=== PATIENT | female | born 1980 | race Caucasian/White ===

== ENCOUNTER → 2016-04-02 | Outpatient (CLI) | payer BC ==
--- NOTE | 2016-04-02 10:22 | US ---
April 02, [address] Duong Vargas, Thank you for requesting consultation and a follow up ultrasound for your patient, Mrs. Botello son. As you know, Kimberly is a 35 year old G 5, P 0132 . Her due date is by LMP and 11 wee k ultrasound. Her current gestational age based on this dating is is 32 weeks 4 days. She is seen t kev for a follow up assessment of growth secondary to size greater than dates. She had an abnormal Glucola but a normal 3 hour GTT. She has a history of of twins at 36 weeks. Her son abraham ad a cardiac anomaly. She had a reassuring echocardiogram in this . Her NIPT was luis miguel ssuring. ULTRASOUND Number of fetuses: 1 Placental location: Anterior presentation: Transverse Heart Rate: 138 bpm Cervix: 4.5 cm viewed transabdominally Amniotic fluid index: 19.4 cm Measurements: Biparietal diameter: 85 mm 34 weeks, 2 days Head circumference: 326 mm 37 weeks, 0 days Abdominal circumference: 313 mm 35 weeks, 2 days Femur length: 63 mm 32 weeks, 6 days Humerus length: 57 mm 33 weeks, 0 days Transcerebellar diameter: 43 mm 33 weeks, 6 days Average age by ultrasound: 34 weeks, 6 days Estimated weight: 2483 gm weight percentile: 94 % ANATOMY anatomy was previously assessed. Today the following structures were visualized and appeared n ormal: Cavum septum pellucidum, four-chamber view of the heart, stomach, bilateral kidneys, and blad guilherme. IMPRESSION: 1. Intrauterine at 32 weeks, 4 days; ALEXIS of 05/24/16. 2. growth is increased to the 94th%ile consistent with macrosomia. 3. anatomy was previously assessed and today's ultrasound continues to provide reassurance of normal appearing anatomy. 4. Normal amniotic fluid volume 5. History of of twins at 36 weeks. RECOMMENDATIONS: I had the opportunity to review today's ultrasound with your patient. I agree with your clinical asse ssment. The baby is large for gestational age consistent with macrosomia at the 94th percentile. Ther e is proportional growth. The amniotic fluid is generous but normal for this gestational age. We perf ormed a review of the anatomy which is reassuring in that no overt abnormalities were detected. We discussed macrosomia today. She is aware that on this growth trajectory, the baby will be o carlyn 9 lb at term. At your discretion, we are happy to provide an additional assessment of growth in 4 weeks to better attempt a guesstimate of weight. For women who do not have diabetes in pregn james, estimated weight up to 5000 grams can be considered for a vaginal attempt. When at 5000 grams or bigger, a section can be consider and discussed. She is aware that delivery <39 we eks for macrosomia is not indicated as it did not improve the odds for a successful vaginal att empt. Thank you for allowing us the opportunity to evaluate your patient. Should you have any further ques tions or concerns please do not hesitate to contact me. Approximately 15 minutes were spent with the patient and 10 minutes were spent in face to face consu ltation. Mariya Jernigan MD [employer] Maternal Medicine Diagnosis Department of Obstetrics & Gynecology [facility]
--- NOTE | 2016-04-02 16:50 | US ---
Follow-up Obstetric Ultrasound Indication: 35-year-old 5 para 0-1-3-2 woman following up in the Perinatology Clinic due to s ize greater than dates. The estimated gestational age by previous dating is 32 weeks and 4 days yield ing an EDC of May 24, 2016 Comparison: February 14, 2016 Findings: Number: 1 Presentation: Transverse, head maternal right Placental location: Anterior. No previa. Cervix: 4.5 cm (visualized transabdominally) Maximum vertical pocket: 7.7 cm Amniotic fluid index: 19.4 cm heart rate: 138 bpm Ovaries: Not visualized. Biometry: Biparietal diameter: 85 mm 34 weeks, 2 days Head circumference: 326 mm 37 weeks, 0 days Abdominal circumference: 313 mm 35 weeks, 2 days Femur length: 63 mm 32 weeks, 6 days Humerus length: 57 mm 33 weeks, 0 days Transcerebellar diameter: 43 mm 33 weeks, 6 days HC/AC: 1.04 (0.96 - 1.17) FL/BPD: 75% FL/AC: 20% Average ultrasound age: 34 weeks, 6 days EDC based on today's average ultrasound age: May 08, 2016 Estimated weight is 2483 grams +/- 363 grams (5 lbs. 8 oz. +/- 13 ounces). The estimated weight is at the 94th percentile based on previous dating (previously 57th percentile). Anatomy Survey: Previously assessed. The supratentorial brain, posterior fossa, cavum septum pe llucidum, four-chamber heart, stomach, kidneys, and urinary bladder are normal. Impression: 1. Living trinh in transverse presentation. Macrosomia with the fetus now in the 94th p ercentile (previously 57th percentile). The estimated gestational age by biometry is 34 weeks a nd 6 days yielding an EDC of May 08, 2016. The estimated gestational age by previous dating is 32 we eks and 4 days. 2. Upper normal amniotic fluid volume (JAVON is 19.4). 3. Limited reassuring anatomic survey. 4. Please refer to Dr. Mariya Jernigan's perinatology consultation and recommendations for follow up.
== END ==
LOC: FIMAGING 09:30
PROVIDERS: ATTEND Obstetrics & Gynecology
DX: O36.63X1 Maternal care for excessive fetal growth, third trimester, fetus 1 (principal); O09.523 Supervision of elderly multigravida, third trimester; Z3A.32 32 weeks gestation of pregnancy

== ENCOUNTER → 2016-04-26 | Outpatient (CLI) | payer BC | LOC: FIMAGING 13:14 | PROVIDERS: ATTEND Obstetrics & Gynecology | DX: O36.60X1 Maternal care for excessive fetal growth, unspecified trimester, fetus 1 (principal); O14.13 Severe pre-eclampsia, third trimester; Z3A.36 36 weeks gestation of pregnancy; Z87.51 Personal history of pre-term labor ==

== ENCOUNTER 2016-05-04 06:11 | Inpatient (IN) | payer BC ==
[2016-05-04] MEDS ORDERED: OXYTOCIN/RINGERS LACTATE 1,000 ML IV PRN (07:14)
[2016-05-04] MEDS ORDERED: LR 500 ML IV PRN (07:14)
[2016-05-04] MEDS ORDERED: AMPICILLIN SODIUM 2 GM in NS 100 ML IV ONE (07:14)
[2016-05-04] MEDS ORDERED: TERBUTALINE SULFATE 1 MG/ML VIAL IV PRN (07:14)
[2016-05-04] MEDS ORDERED: LIDOCAINE 1% 2 ML INJ ONE (07:42)
[2016-05-04] MEDS ORDERED: LIDOCAINE 1% 30 ML SDV ONE (07:50)
[2016-05-04] MEDS ORDERED: AMMONIA AROMATIC 1 EACH AMP IH ONE (07:51)
[2016-05-04] MEDS ORDERED: MISOPROSTOL 200 MCG TAB ONE (07:52)
[2016-05-04] MEDS ORDERED: OXYTOCIN 10 UNIT/ML VIAL ONE (07:52)
[2016-05-04] MEDS ORDERED: OXYTOCIN/LR *STANDARD DOSE PROTOCOL IV SCH (08:00)
[2016-05-04] MEDS: LR 1,000 ML IV PRN ×3 (08:20→16:48)
[2016-05-04 09:29] LABS: % IMMATURE GRANULYOCYTES 1.1 % (0.0-1.1); ABSOLUTE IMMATURE GRANULOCYTES 0.09 10^3/uL (0.00-0.10); ADD DIFF? NO; ADD MORPH? NO; ADD SCAN? NO; ATYPICAL LYMPHOCYTE FLAG 0 (0-99); FRAGMENT RBC FLAG 0 (0-99); HEMATOCRIT 33.1 % (38.0-47.0); LEFT SHIFT FLG 0 (0-99); LIPEMIA HEMOLYSIS FLAG 80 (0-99); MEAN CELL HEMOGLOBIN 27.5 pg (27.9-34.1); MEAN CELL HEMOGLOBIN CONCENTR. 33.2 g/dL (32.4-36.7); MEAN CELL VOLUME 82.8 fL (81.5-99.8); MEAN PLATELET VOLUME 10.4 fL (8.7-11.7); PLATELET CLUMPS FLAG 0 (0-99); PLATELET COUNT 262 10^3/uL (150-400)
[2016-05-04 09:48] LABS: ALANINE AMINOTRANSFERASE 24 IU/L (9-52); ASPARTATE AMINOTRANSFERASE 17 IU/L (14-46); BILIRUBIN,TOTAL 0.4 mg/dL (0.1-1.4); BILIRUBIN-CONJUGATED 0.3 mg/dL (0.0-0.5); BILIRUBIN-UNCONJUGATED 0.1 mg/dL (0.0-1.1); CREATININE 0.5 mg/dL (0.6-1.0); GLOMERULAR FILTRATION RATE > 60; LACTATE DEHYDROGENASE 363 IU/L (313-618)
[2016-05-04] MEDS ORDERED: fentaNYL 2MCG/ML/BUP 0.1% RTU 100 ML BAG EP ONE (11:30)
[2016-05-04] MEDS ORDERED: BUPIVACAINE 0.25% 30 ML SDV ONE (11:30)
[2016-05-04] MEDS ORDERED: PHENYLEPHRINE HCL 100 MCG/ML SYR ONE (11:30)
[2016-05-04] MEDS ORDERED: fentaNYL 100 MCG/2 ML INJ ONE (11:30)
[2016-05-04] MEDS ORDERED: ONDANSETRON 4 MG/2 ML VIAL IVP PRN (12:56)
[2016-05-04] MEDS ORDERED: PHENYLEPHRINE HCL 100 MCG/ML SYR IVP PRN (12:56)
--- NOTE | 2016-05-04 12:59 | OBPROG ---
OBG Progress Note Assessment/Plan: Assessment: 35 yo [id number] @ 37 2/7, IOL for mild pre-eclampsia Plan: 05/04/16 12:53 FWB reassuring. Gbs-s/p abx. Comfortable with epidural. IUPC placed, titrate pitocin as desired. Subjective: 35 yo [id number] @ 37 2/7, IOL for mild tyd-[id number]-esoyorydysv with epidural. Objective: 05/04/16 08:20 05/04/16 08:20 Patient ABO/Rh A POSITIVE 05/04/16 08:20 Uric Acid 3.0 mg/dL (2.5-6.8) 05/04/16 08:20 Total Bilirubin 0.4 mg/dL (0.1-1.4) 05/04/16 08:20 Conjugated Bilirubin 0.3 mg/dL (0.0-0.5) 05/04/16 08:20 Unconjugated Bilirubin 0.1 mg/dL (0.0-1.1) 05/04/16 08:20 AST 17 IU/L (14-46) 05/04/16 08:20 ALT 24 IU/L (9-52) 05/04/16 08:20 Lactate Dehydrogenase 363 IU/L (313-618) 05/04/16 08:20 129/89 110 36.4 - SVE Dilation (cm): 4 Effacement (%): 50 Station: -3 Current Contraction Pattern: Regular FHR (bpm): 150 FHR Pattern Variability: Moderate FHR Category: 2 Membranes: AROM Amniotic Fluid Color: Clear ICD10 Worksheet Patient Problems: Problems Problem Status Onset Mild pre-eclampsia in third trimester Acute
[2016-05-04] MEDS ORDERED: fentaNYL 2MCG/ML/BUP 0.1% RTU 100 ML EP SCH (13:00)
[2016-05-04] MEDS ORDERED: LR 500 ML IV SCH (13:00)
[2016-05-04] MEDS: AMPICILLIN SODIUM 1 GM in NS 100 ML IV SCH ×2 (13:06→16:38)
--- NOTE | 2016-05-04 13:31 | PREANESOB ---
Obstetric Pre-Anesthesia Info - General Info Proposed Procedure: Labor and delivery with pitocin. : 5 Para: 1 WBD: 37 - Info Status: Full Term Monitors: External FHR Baseline (bpm): 130 FHR Pattern: Reassuring - Labor Status Cervical Dilation per last OB SVE: 4 Station per last OB SVE: -3 Amniotic Fluid Color: Clear Pitocin: In Use PIH: Mild Magnesium Sulfate in Use: No Labor Epidural: Proposed Anesthesia ROS: Prior epidural for delivery of twins. Mild preeclampsia. Takes synthroid. Allergies/Adverse Reactions: Allergy/AdvReac Type Severity Reaction Status Date / Time No Known Allergies Allergy Unverified 11/14/12 13:03 Home Medications: Medication Instructions Recorded Dha 1 tab PO DAILY AT 4PM 05/04/16 Synthroid 75 mcg (*) 75 mcg PO DAILY06 05/04/16 Visit Medications: Generic Name Dose Route Start Last Admin Trade Name Freq PRN Reason Stop Dose Admin Diphenhydramine HCl 25 - 50 mg 05/04/16 12:56 05/04/16 13:10 Benadryl Injection IVP 10/31/16 12:55 50 mg Q6HRS PRN Administration Itching Ampicillin Sodium 1 gm/ Sodium 100 mls @ 200 mls/hr 05/04/16 11:16 05/04/16 13:06 Chloride IV 06/03/16 11:15 100 mls Q4H HALINA Administration Protocol Lactated Ringer's 1,000 mls @ 0 mls/hr 05/04/16 07:14 05/04/16 08:20 Lr IV 10/31/16 07:13 1,000 mls PRN PRN Administration SEE PROTOCOL CONDITIONS Protocol Per Protocol Lactated Ringer's 500 mls @ 500 mls/hr 05/04/16 07:14 Lr IV PRN PRN Maternal Hypotension Oxytocin/Lactated Ringer's 1,000 mls @ 150 mls/hr 05/04/16 07:14 Pitocin 20 Units/Lr (Premix) IV PRN PRN Post- bleeding Oxytocin/Lactated Ringer's 500 mls @ 0 mls/hr 05/04/16 08:00 05/04/16 08:20 Pitocin 30 Units/Lr (Premix) IV 10/31/16 07:59 500 mls CONT HALINA Administration Protocol Per Protocol Fentanyl/Bupivacaine HCl 100 mls @ 0 mls/hr 05/04/16 13:00 Fentanyl/Bupivacaine/Ns 2 Mcg/Ml 0.1% (Premix EP 05/14/16 12:59 CONT HALINA Protocol As Directed Lactated Ringer's 500 mls @ 0 mls/hr 05/04/16 13:00 Lr IV 10/31/16 12:59 CONT HALINA As Directed Ibuprofen 600 mg 05/04/16 07:14 Motrin PO 10/31/16 07:13 Q6HRS PRN post , inflammation Ondansetron HCl 4 mg 05/04/16 12:56 Zofran IVP 10/31/16 12:55 Q4HRS PRN Nausea/Vomiting, Can't Take PO Phenylephrine HCl 100 mcg 05/04/16 12:56 Eugene-Synephrine IVP 10/31/16 12:55 .Q2M PRN Hypotension Terbutaline Sulfate 0.25 mg 05/04/16 07:14 Brethine IV 10/31/16 07:13 ONCE PRN Tachysystole Discontinued Medications Generic Name Dose Route Start Last Admin Trade Name Freq PRN Reason Stop Dose Admin Ammonia (Aromatic Spirit) Confirm 05/04/16 07:51 Ammonia Aromatic Administered 05/04/16 07:52 Dose 1 each IH .STK-MED ONE Bupivacaine HCl Confirm 05/04/16 11:30 Sensorcaine 0.25% Sdv Administered 05/04/16 11:31 Dose 30 ml .ROUTE .STK-MED ONE Ephedrine Sulfate Confirm 05/04/16 07:51 Ephedrine Sulfate Administered 05/04/16 07:52 Dose 50 mg .ROUTE .STK-MED ONE Fentanyl Confirm 05/04/16 11:30 Sublimaze Administered 05/04/16 11:31 Dose 100 mcg .ROUTE .STK-MED ONE Fentanyl/Bupivacaine HCl Confirm 05/04/16 11:30 Fentanyl/Bupivacaine/Ns 2 Mcg/Ml 0.1% (Premix Administered 05/04/16 11:31 Dose 100 ml EP .STK-MED ONE Ampicillin Sodium 2 gm/ Sodium 110 mls @ 220 mls/hr 05/04/16 07:14 05/04/16 08:19 Chloride IV 05/04/16 07:43 110 mls ONCE ONE Administration Protocol Lidocaine HCl Confirm 05/04/16 07:42 Lidocaine Hcl 1% Administered 05/04/16 07:43 Dose 2 ml .ROUTE .STK-MED ONE Lidocaine HCl Confirm 05/04/16 07:50 Lidocaine Hcl 1% Administered 05/04/16 07:51 Dose 30 ml .ROUTE .STK-MED ONE Misoprostol Confirm 05/04/16 07:52 Cytotec Administered 05/04/16 07:53 Dose 800 mcg .ROUTE .STK-MED ONE Oxytocin Confirm 05/04/16 07:52 Pitocin Administered 05/04/16 07:53 Dose 40 unit .ROUTE .STK-MED ONE Phenylephrine HCl Confirm 05/04/16 11:30 Eugene-Synephrine Administered 05/04/16 11:31 Dose 1,000 mcg .ROUTE .STK-MED ONE - Anesthesia History Response to Local Anesthetics: Normal Anesthesia & Operative History: No Prior Problems - Social History Substance Use/Abuse: Denies - Focused Exam Blood Pressure: 128/83 Heart Rate: 81 Height/Weight (Nursing): Height 165.1 cm Weight 80.739 kg Physical Exam: Within normal limits. ASA Status: II Labs: 05/04/16 08:20 05/04/16 08:20 Patient ABO/Rh A POSITIVE 05/04/16 08:20 Uric Acid 3.0 mg/dL (2.5-6.8) 05/04/16 08:20 Total Bilirubin 0.4 mg/dL (0.1-1.4) 05/04/16 08:20 Conjugated Bilirubin 0.3 mg/dL (0.0-0.5) 05/04/16 08:20 Unconjugated Bilirubin 0.1 mg/dL (0.0-1.1) 05/04/16 08:20 AST 17 IU/L (14-46) 05/04/16 08:20 ALT 24 IU/L (9-52) 05/04/16 08:20 Lactate Dehydrogenase 363 IU/L (313-618) 05/04/16 08:20 - Plan Anesthetic Plan: CSE Consent Signed and on Chart: Yes Patient/Guardian Understands and Agrees to Plan: Yes
--- NOTE | 2016-05-04 13:34 | POSTANESTH ---
Post Anesthetic Evaluation Cardiovascular Status: Normal, Stable Respiratory Status: Normal, Stable, Similar to Pre-op Cond. Level of Consciousness/Mental Status: Can Participate in Eval, Alert and Oriented Pain Control: Adequate, Prn Tx Ordered Nausea/Vomiting Control: Adequate, Prn Tx Ordered Complications Possibly Related to Anesthesia: None Noted (Tolerated CSE well, stable after phenylephrine x 2, comfortable.)
[2016-05-04] MEDS ORDERED: HYDROCORTISONE 0.5% CREAM TP PRN (20:01)
[2016-05-04] MEDS ORDERED: SIMETHICONE 80 MG TAB CHEW PO PRN (20:01)
--- NOTE | 2016-05-04 20:04 | OBPROC ---
- Labor and Delivery Onset of Contractions Date: 05/04/16 Onset of Contractions Time: 08:00 Onset of Contractions Type: Induced Rupture of Membranes Date: 05/04/16 Rupture of Membranes Time: 12:30 Rupture of Membranes Type: Artificial Amniotic Fluid Color: Clear Dilation Complete Time: 19:00 Delivery Type: Spontaneous Placenta Delivery Date: 05/04/16 Episiotomy/Laceration: 2nd Degree Repair: 3-0, Vicryl EBL: 200 ml Complications: None - Medications Labor Augmentation/Induction Meds Used: Pitocin Labor Augmentation/Induction Indication: Other (Specify) (mild pre-eclampsia) Anesthesia: Epidural - Info Infant A Delivery Date: 05/04/16 Delivery Time: 19:46 Sex of : Female Score (1 Min): 8 Score (5 Min): 9
[2016-05-04] MEDS: IBUPROFEN 600 MG TAB PO PRN (20:09)
[2016-05-05] MEDS: AMPICILLIN SODIUM 1 GM in NS 100 ML IV SCH (00:29)
[2016-05-05] MEDS: IBUPROFEN 600 MG TAB PO PRN ×4 (04:21→23:44)
--- NOTE | 2016-05-05 05:24 | SOAPPROG ---
SOAP Progress Note Assessment/Plan: Assessment: 35 yo s/p , ppd 1, with mild pre-eclampsia, doing well. Plan: Routine care. Rh +, rubella immune. Blood pressures stable. Home tomorrow. 05/05/16 05:22 Subjective: 35 yo s/p , ppd 1, with mild pre-eclampsia, doing well. Pain well controlled, decreased lochia, well. Objective: Vital Signs Temp Pulse Resp BP Pulse Ox 36.6 C 98 20 117/71 96 05/04/16 23:30 05/04/16 23:30 05/04/16 23:30 05/04/16 23:30 05/04/16 23:30 Laboratory Results 05/04/16 08:20 05/04/16 08:20 05/03/16 05/04/16 05/05/16 05:59 05:59 05:59 Intake Total 4200 Output Total 200 Balance 4000 Physical Exam - Physical Exam General Appearance: no apparent distress Respiratory: lungs clear Cardiac/Chest: regular rate, rhythm Abdomen: non-tender Skin: warm/dry Extremities: non-tender Neuro/Psych: oriented x 3 ICD10 Worksheet Patient Problems: Problems Problem Status Onset Mild pre-eclampsia in third trimester Acute
[2016-05-05] MEDS: HYDROCODONE/APAP 5/325 TAB PO PRN ×3 (06:27→21:29)
[2016-05-05] MEDS: LEVOTHYROXINE 75 MCG TAB PO SCH (06:27)
[2016-05-05] MEDS: DOCUSATE SODIUM 100 MG CAP PO PRN (14:02)
[2016-05-06] MEDS: HYDROCODONE/APAP 5/325 TAB PO PRN ×3 (01:25→18:26)
[2016-05-06] MEDS: LEVOTHYROXINE 75 MCG TAB PO SCH (05:47)
[2016-05-06] MEDS: IBUPROFEN 600 MG TAB PO PRN ×3 (05:47→18:01)
[2016-05-06 09:15] VITALS: BP 137/81; PULSE 79; RESP 16; TEMP 97.5; O2SAT 94
--- NOTE | 2016-05-06 10:04 | SOAPPROG ---
SOAP Progress Note Assessment/Plan: Assessment: 35 yo s/p , ppd 2, with mild pre-eclampsia, doing well. Plan: Routine care. Rh +, rubella immune. Blood pressures stable. Home today. 05/06/16 10:04 Subjective: 35 yo s/p , ppd 2, with mild pre-eclampsia, doing well. Objective: Vital Signs Temp Pulse Resp BP Pulse Ox 36.4 C 79 16 137/81 H 94 05/06/16 09:14 05/06/16 09:14 05/06/16 09:14 05/06/16 09:14 05/06/16 09:14 Laboratory Results 05/04/16 08:20 05/04/16 08:20 05/05/16 05/06/16 05/07/16 05:59 05:59 05:59 Intake Total 4200 Output Total 200 Balance 4000 Physical Exam - Physical Exam General Appearance: no apparent distress Respiratory: lungs clear Cardiac/Chest: regular rate, rhythm Abdomen: non-tender Skin: warm/dry Extremities: non-tender Neuro/Psych: oriented x 3 ICD10 Worksheet Patient Problems: Problems Problem Status Onset Mild pre-eclampsia in third trimester Acute
[2016-05-06] MEDS: DOCUSATE SODIUM 100 MG CAP PO PRN (18:26)
== END 2016-05-06 18:30 | disposition home or self-care (01) | DRG 775 ==
LOC: FLD 06:11 → FOB 23:10
PROVIDERS: ADMIT Obstetrics & Gynecology; ATTEND Obstetrics & Gynecology
PROC: 3E033VJ Introduction of Other Hormone into Peripheral Vein, Percutaneous Approach (ICD-10-PCS; principal; 2016-05-04)
PROC: 10907ZC Drainage of Amniotic Fluid, Therapeutic from Products of Conception, Via Natural or Artificial Opening (ICD-10-PCS; principal; 2016-05-04)
PROC: 0KQM0ZZ Repair Perineum Muscle, Open Approach (ICD-10-PCS; principal; 2016-05-04)
PROC: 10E0XZZ Delivery of Products of Conception, External Approach (ICD-10-PCS; principal; 2016-05-04)
DX: O14.04 Mild to moderate pre-eclampsia, complicating childbirth (principal); Z37.0 Single live birth; Z3A.37 37 weeks gestation of pregnancy; O99.284 Endocrine, nutritional and metabolic diseases complicating childbirth; E03.9 Hypothyroidism, unspecified; O99.824 Streptococcus B carrier state complicating childbirth; O70.1 Second degree perineal laceration during delivery
CPT/HCPCS: J0290; J1200; J2370; J2590; J3010; J3105

== ENCOUNTER 2016-05-11 15:18 | Inpatient (IN) | payer BC ==
[2016-05-11] MEDS ORDERED: HYDROCORTISONE 0.5% CREAM TP PRN (15:40)
[2016-05-11] MEDS ORDERED: DOCUSATE SODIUM 100 MG CAP PO PRN (15:40)
[2016-05-11] MEDS ORDERED: ACETAMINOPHEN 325 MG TAB PO PRN (15:40)
[2016-05-11] MEDS ORDERED: SIMETHICONE 80 MG TAB CHEW PO PRN (15:40)
[2016-05-11] MEDS ORDERED: GENTAMICIN PHARMACY TO DOSE MISC SCH (16:00)
[2016-05-11] MEDS ORDERED: NS 1,000 ML IV ONE (18:01)
--- NOTE | 2016-05-11 18:07 | PDGENHP ---
History and Physical - History of Present Illness Pt is a seen in the office today and found to have endometritis after vaginal delivery 1 week ago. Delivery was complicated by 2nd deg laceration and preeclampsia without severe features. Pt started having fevers and heavier bleeding overnight, seen in office and started on augmentin, but was feeling worse so decision made to admit for IV abx. History Information - Allergies/Home Medication List Allergies/Adverse Reactions: No Known Allergies Allergy (Unverified 11/14/12 13:03) Home Medications: Dha 1 tab PO DAILY AT 4PM 05/04/16 [Last Taken 05/03/16] Synthroid 75 mcg (*) 75 mcg PO DAILY06 05/04/16 [Last Taken 05/04/16 05:30] I have personally reviewed and updated: family history, medical history, social history, surgical history - Past Medical History no pertinent PMH - Surgical History Reports: no pertinent surgical hx - Family History Positive for: non-pertinent - Social History Smoking Status: Never smoked Alcohol Use: None Drug Use: None Additional social history: . twin 4 year olds at home Review of Systems Constitutional: Reports: chills, fever EENMT: Reports: no symptoms Cardiac: Reports: no symptoms Respiratory: Reports: no symptoms Gastrointestinal: Reports: abdominal pain, abdominal distention Genitourinary: Reports: no symptoms Muscolosketal: Reports: muscle pain Skin: Reports: no symptoms Neurological: Reports: no symptoms Hematologic/Lymphatic: Reports: no symptoms Immunologic/Allergy: Reports: no symptoms Physical Exam Pending In office HR 100, temp 102.5 Constitutional: uncomfortable Ears, Nose, Mouth, Throat: moist mucous membranes Cardiovascular: regular rate and rhythym Respiratory: no respiratory distress Gastrointestinal: tenderness (uterus TTP) Skin: warm Musculoskeletal: full muscle strength Neurologic: AAOx3 Psychiatric: interacting appropriately Lymph, Heme, Immunologic: no cervical LAD Assessment & Plan Assessment: PPD#7 endometritis Hemodynamically stable, lactic acid normal this AM, no e/o sepsis Plan: Admit to Repeat CBC Blood cultures x 2 IV abx (gent/clinda) IV fluid bolus Tyenol/ibuprofen Methergine 0.2 mg po q6h x 48 hours Monitor bleeding closely. No obvious retained products on exam in office today, if ongoing bleeding will get formal US and consider D&C
[2016-05-11] MEDS: D5W IV SCH (18:50)
[2016-05-11] MEDS: GENTAMICIN SULFATE IV SCH (18:50)
[2016-05-11 18:53] LABS: HEMATOCRIT 32.5 % (38.0-47.0); HEMOGLOBIN 10.8 g/dL (12.6-16.3); MEAN CELL HEMOGLOBIN 27.8 pg (27.9-34.1); MEAN CELL HEMOGLOBIN CONCENTR. 33.2 g/dL (32.4-36.7); MEAN CELL VOLUME 83.8 fL (81.5-99.8); RED BLOOD CELL COUNT 3.88 10^6/uL (4.18-5.33); RED CELL DISTRIBUTION WIDTH 14.5 % (11.5-15.2)
[2016-05-11] MEDS: IBUPROFEN 600 MG TAB PO PRN (19:18)
[2016-05-11] MEDS: METHYLERGONOVINE MAL 0.2 MG TAB PO SCH ×2 (19:49→23:57)
[2016-05-11 19:50] VITALS: O2SAT 96
[2016-05-11] MEDS: CLINDAMYCIN 900 MG/DEXTROSE 50 ML IV SCH (19:50)
[2016-05-11] MEDS: HYDROCODONE/APAP 5/325 TAB PO PRN ×2 (20:56→23:57)
[2016-05-11] MEDS ORDERED: CLINDAMYCIN 900 MG/DEXTROSE 50 ML IV SCH (22:00)
[2016-05-12] MEDS: HYDROCODONE/APAP 5/325 TAB PO PRN ×2 (04:03→17:02)
[2016-05-12] MEDS: CLINDAMYCIN 900 MG/DEXTROSE 50 ML IV SCH ×3 (04:03→19:48)
[2016-05-12] MEDS: METHYLERGONOVINE MAL 0.2 MG TAB PO SCH ×4 (04:03→17:03)
[2016-05-12 04:24] LABS: HEMATOCRIT 36.7 % (38.0-47.0); HEMOGLOBIN 12.1 g/dL (12.6-16.3); MEAN CELL HEMOGLOBIN 27.8 pg (27.9-34.1); MEAN CELL VOLUME 84.2 fL (81.5-99.8); RED BLOOD CELL COUNT 4.36 10^6/uL (4.18-5.33); RED CELL DISTRIBUTION WIDTH 14.5 % (11.5-15.2)
[2016-05-12] MEDS: IBUPROFEN 600 MG TAB PO PRN (07:58)
[2016-05-12 08:02] VITALS: RESP 18
--- NOTE | 2016-05-12 10:20 | SOAPPROG ---
SOAP Progress Note Assessment/Plan: Assessment: endometritis Significantly improved with IV fluids and IV abx Afebrile US suggestive of retained POC at fundus Currently no bleeding Blood cx pending Plan: Continue IV abx for 24 hours (2nd dose of gent at 18:30 tonight) Recommend D&C for possible retained products. Alternative is continue to monitor and treat with uterotonics, but discussed with pt this puts her at increased risk of having to return to hospital for unresolved bleeding/ infection. she agrees with plan. Plan D&C at 15:30 after 8 hrs NPO. Reviewed risks in detail including pain, infection, bleeding, injury to uterus, transfusion. She has had procedure in past, agrees to proceed, all questions answered. Pt would like to go home tonight after procedure if she is continuing to do well. Will continue augmentin BID x 7 days at home and follow-up in office next week. 05/12/16 10:16 Subjective: Feels so much better this AM. Yesterday felt like she was in a fog, now feels back to normal. Bleeding minimal overnight. Minimal cramping/pain. Baby in room with her, with no issues. Denies fevers/chills. Objective: Vital Signs Temp Pulse Resp BP Pulse Ox 36.8 C 107 H 18 124/80 H 96 05/12/16 08:01 05/12/16 08:01 05/12/16 08:01 05/12/16 08:01 05/12/16 08:01 Laboratory Results 05/12/16 04:10 05/11/16 05/12/16 05/13/16 05:59 05:59 06:59 Output Total 0 Balance 0 Gen: NAD, alert, awake, AOx4 Breasts: soft CV: RRR Resp: unlabored Abd: soft, minimally tender at fundus Ext: no edema ICD10 Worksheet Patient Problems: Problems Problem Status Onset Endometritis following delivery Acute Retained products of conception Acute - ICD10 Problem Qualifiers (1) Endometritis following delivery (2) Retained products of conception (3) Mild pre-eclampsia in third trimester
[2016-05-12 12:39] VITALS: BP 138/93; PULSE 88; TEMP 97
[2016-05-12] MEDS ORDERED: PROPOFOL/EMULSION 500 MG/50 ML BOTTLE IV ONE (15:31)
[2016-05-12] MEDS ORDERED: fentaNYL 100 MCG/2 ML INJ ONE (15:31)
[2016-05-12] MEDS ORDERED: LIDOCAINE 2% 100 MG/5 ML SYR ONE (15:32)
[2016-05-12] MEDS ORDERED: LIDOCAINE 2% JELLY 5 ML TUBE ONE (15:34)
--- NOTE | 2016-05-12 16:49 | PDDCSUM ---
Discharge Summary Discharge Summary: Date of admission: 05/11/16 Date of discharge: 05/12/16 Diagnosis at time of admission: PPD#7, endometritis, r/o retained POC Diagnosis at time of discharge: Same Consults: Anesthesia Procedures: Pelvic US, Suction D&C for retained products of conception Hospital course: Pt is a PPD#7 who presented to the office with heavier bleeding starting on PPD#6 and fevers/chills. She was diagnosed with endometritis. She was admitted to the hospital and started in IV fluids, and IV clindamycin 900 mg q8h and gentamicin 5 mg/kg every 24 hours. She remained afebrile and her bleeding improved. Her vitals and hematocrit were stable. On HD #1 a pelvic US was performed demonstrating likely retained products of conception, consistent with her presentation of endometritis. She underwent an uncomplicated suction D&C. She desired to be discharged home after the procedure and after 24 hours of IV antibiotics with no fevers. She will be discharged home on oral antibiotics with close outpatient follow-up. Instructions: Nothing in the vagina x 6 weeks. Complete course of Augmentin x 7 days. Call for temps, bleeding, pain, other concerns. Follow-up within 7 days. 05/12/16 04:10 Blood cultures: Pending Medications to Continue on Transfer Dha 1 tab PO DAILY AT 4PM 05/04/16 [Last Taken 05/03/16] Synthroid 75 mcg (*) 75 mcg PO DAILY06 05/04/16 [Last Taken 05/04/16 05:30] Hydrocodone/APAP 5/325 [[place] 5/325 (*)] 1 - 2 tab PO Q4HRS PRN #20 tab [Last Taken Unknown] Ibuprofen [Motrin (*)] 600 mg PO Q6HRS PRN #60 tab 05/06/16 [Last Taken Unknown] Amoxicillin/Clavulanate Pot [Augmentin 875 MG TAB (*)] 875 mg PO BID #0 tab 01/18 [Last Taken Unknown]
[2016-05-12] MEDS ORDERED: LEVOTHYROXINE 75 MCG TAB PO SCH (17:00)
[2016-05-12] MEDS: GENTAMICIN SULFATE IV SCH (18:22)
[2016-05-12] MEDS: D5W IV SCH (18:22)
--- NOTE | 2016-05-13 14:32 | GOP ---
[f rep st] OPERATIVE REPORT DATE OF OPERATION: 05/12/2016 SURGEON: Kacey Diaz MD EVENT TECHNICIAN: Stacey Kelly RN. ANESTHESIA: IV general with propofol. ANESTHESIOLOGIST: Los Doyle MD. PREOPERATIVE DIAGNOSIS: 1. day #8 status post vaginal delivery. 2. endometritis. 3. Retained products of conception. POSTOPERATIVE DIAGNOSIS: 1. day #8 status post vaginal delivery. 2. endometritis. 3. Retained products of conception. PROCEDURE PERFORMED: Suction dilatation and curettage under ultrasound guidance. FINDINGS: Anteverted uterus about 12 weeks in size. Products extracted at time of suction were notable for white, black and red tissue clots consistent with products of conception. At the end of the procedure, a thin stripe was noted on the ultrasound demonstrating all products had been removed and uterine fundus was firm. ESTIMATED BLOOD LOSS: 50 mL. DESCRIPTION OF PROCEDURE: The patient is a 35-year-old G5, P1-1-3-2, day #8 status post vaginal delivery at term that was complicated by preeclampsia without severe features. On day #7, she presented to the clinic with heavier than expected bleeding and evidence of endometritis. She was admitted and started on IV gentamicin and clindamycin IV , which she continued on prior to the procedure. An ultrasound was done on hospital day #1 demonstrating likely products of conception. It was recommended to undergo a suction D and C, and the patient agreed. We discussed the risks of pain, infection, bleeding, injury to the uterus, blood transfusion. All questions were answered. She was taken to the operating room, and IV sedation was started. A time-out was done with all parties present, confirming the patient and procedure. She was prepped and draped in the normal sterile fashion in dorsal lithotomy with Harely stirrups. She had emptied her bladder prior to entering the operating room. No antibiotics were give as she was already on systemic IV antibiotics. The Klopfer speculum was placed, and the anterior lip of the cervix was grasped with an atraumatic allis clamp. The cervix was noted to be dilated to 10 mm. A 10 mm suction curette was used to remove the blood and tissue in the uterus under direct ultrasound guidance. A gentle sharp curettage was then performed. Two additional passes with the suction curette were performed to ensure that the uterus was empty and that a gritty texture was noted 360 degrees around. Ultrasound confirmed a thin uterine stripe at this time. Bleeding was scant at the end of the procedure. All instruments were removed. Counts were correct x2. The patient was brought to the recovery room in stable condition. FLUIDS: 600 mL crystalloid. COMPLICATIONS: None. /[id number]/MODL MTDD
== END 2016-05-12 19:45 | disposition home or self-care (01) | DRG 769 ==
LOC: OBSVTOIN 16:04 → FLD 16:04
PROVIDERS: ADMIT Obstetrics & Gynecology; ATTEND Obstetrics & Gynecology
PROC: 10D17ZZ Extraction of Products of Conception, Retained, Via Natural or Artificial Opening (ICD-10-PCS; principal; 2016-05-12)
DX: O86.12 Endometritis following delivery (principal); O72.2 Delayed and secondary postpartum hemorrhage
CPT/HCPCS: J2001; J2704; J3010

== ENCOUNTER → 2016-08-22 | Outpatient (CLI) | payer BC | LOC: BMCIMAGING 09:12 | PROVIDERS: ATTEND Internal Medicine Endocrinology, Diabetes & Metabolism | DX: R22.1 Localized swelling, mass and lump, neck (principal) | CPT/HCPCS: 76536-PO ==

== ENCOUNTER → 2017-05-31 | Outpatient (CLI) | payer BC | LOC: FIMAGING 08:50 | PROVIDERS: ATTEND Nurse Practitioner Adult Health | DX: K80.20 Calculus of gallbladder without cholecystitis without obstruction (principal) ==

== ENCOUNTER 2017-06-13 09:00 | Day surgery (SDC) | payer BC ==
[2017-06-13] MEDS ORDERED: LIDOCAINE 1% 2 ML INJ ID PRN (09:23)
[2017-06-13] MEDS ORDERED: LR 1,000 ML IV ONE (09:23)
[2017-06-13] MEDS ORDERED: BUPIVACAINE 0.5% 30 ML SDV ONE (09:50)
[2017-06-13] MEDS ORDERED: cefOXitin SODIUM 2 GM in STERILE WATER INJ 21 ML IV ONE (10:04)
[2017-06-13] MEDS ORDERED: INDOCYANINE GREEN 25 MG VIAL IV ONE (10:04)
--- NOTE | 2017-06-13 10:09 | PDHPUP ---
History & Physical Update H&P update statement: This history and physical update is based on an assessment of the patient which was completed after admission or registration (within 24 hours), but prior to the surgery/procedure. H&P update: H&P reviewed & patient examined, no change in patient's condition since H&P completed
[2017-06-13] MEDS ORDERED: MIDAZOLAM 2 MG/2 ML VIAL IVP ONE (10:46)
--- NOTE | 2017-06-13 10:47 | PDANEPAE ---
ANE Past Medical History - Cardiovascular History Hx Hypertension: No Hx Arrhythmias: No Hx Chest Pain: No Hx Coronary Artery / Peripheral Vascular Disease: No Hx CHF / Valvular Disease: No Hx Palpitations: No - Pulmonary History Hx COPD: No Hx Asthma/Reactive Airway Disease: No Hx Recent Upper Respiratory Infection: No Hx Oxygen in Use at Home: No Hx Sleep Apnea: No Sleep Apnea Screening Result - Last Documented: Negative - Neurologic History Hx Cerebrovascular Accident: No Hx Seizures: No Hx Dementia: No - Endocrine History Hx Diabetes: No Obesity: no Endocrine History Comment: thyroid Rx - Renal History Hx Renal Disorders: No - Liver History Hx Hepatic Disorders: No - Neurological & Psychiatric Hx Hx Neurological and Psychiatric Disorders: No - Cancer History Hx Cancer: No - Congenital Disorder History Hx Congenital Disorders: No - GI History Hx Gastrointestinal Disorders: Yes Gastrointestinal History Comment: cholelithiasis - Other Health History Other Health History: Polycystic Ovarian Syndrome- on Metformin - Chronic Pain History Chronic Pain: No - Surgical History Prior Surgeries: D and C- retained placenta. partial thyroidectomy ANE Review of Systems Review of Systems: - Exercise capacity METS (RN): 6 METS ANE Patient History - Allergies Allergies/Adverse Reactions: No Known Allergies Allergy (Verified 06/10/17 15:05) - Home Medications Home medications: home medication list seen and reviewed Home Medications: Synthroid 75 mcg (*) 75 mcg PO DAILY06 05/04/16 [Last Taken 06/13/17 07:00] Metformin HCl 06/10/17 [Last Taken 06/12/17] - NPO status NPO Since - Liquids (Date): 06/12/17 NPO Since - Liquids (Time): 21:00 NPO Since - Solids (Date): 06/12/17 NPO Since - Solids (Time): 21:00 - Anes Hx Anes Hx: no prior problems - Smoking Hx Smoking Status: Never smoked ANE Labs/Vital Signs - Vital Signs Blood Pressure: 127/86 Heart Rate: 68 Respiratory Rate: 16 O2 Sat (%): 99 Height: 167.64 cm Weight: 58.967 kg ANE Physical Exam - Airway Mouth exam: normal dental/mouth exam - Pulmonary Pulmonary: no respiratory distress - Cardiovascular Cardiovascular: regular rate and rhythym - ASA Status ASA Status: I ANE Anesthesia Plan Anesthesia Plan: general endotracheal anesthesia
[2017-06-13] MEDS ORDERED: PROPOFOL 200 MG/20 ML VIAL ONE (10:49)
[2017-06-13] MEDS ORDERED: fentaNYL 250 MCG/5 ML INJ ONE (10:49)
[2017-06-13] MEDS ORDERED: ROCURONIUM 100 MG/10 ML VIAL ONE (10:49)
[2017-06-13] MEDS ORDERED: ONDANSETRON 4 MG/2 ML VIAL ONE (10:54)
[2017-06-13] MEDS ORDERED: KETOROLAC 30 MG/1 ML SDV ONE (10:54)
[2017-06-13] MEDS ORDERED: SUGAMMADEX SODIUM 200 MG/2 ML VIAL IVP ONE (10:54)
[2017-06-13] MEDS ORDERED: DEXAMETHASONE 4 MG/ML VIAL ONE (10:54)
[2017-06-13] MEDS ORDERED: LIDOCAINE 2% 5 ML SDV ONE (11:02)
[2017-06-13] MEDS ORDERED: HYDROCODONE/APAP 5/325 TAB PO PRN (12:17)
[2017-06-13] MEDS ORDERED: ONDANSETRON 4 MG/2 ML VIAL IVP PRN (12:17)
[2017-06-13] MEDS ORDERED: oxyCODONE IR 5 MG TAB PO PRN (12:17)
[2017-06-13] MEDS ORDERED: NALOXONE HCL 0.4 MG/ML INJ IVP PRN (12:17)
[2017-06-13] MEDS ORDERED: HYDROmorphONE/DILAUDID 1 MG/ML INJ IVP PRN (12:17)
[2017-06-13] MEDS ORDERED: ALBUTEROL 3 ML DEYVIAL IH PRN (12:17)
[2017-06-13] MEDS ORDERED: ACETAMINOPHEN 500 MG TAB PO PRN (12:17)
[2017-06-13] MEDS ORDERED: LABETALOL HCL 5 MG/ML 20 ML MDV IVP PRN (12:17)
[2017-06-13] MEDS ORDERED: PROMETHAZINE HCL 25 MG/ML INJ IVP PRN (12:17)
[2017-06-13] MEDS ORDERED: LR 500 ML IV PRN (12:17)
[2017-06-13] MEDS ORDERED: fentaNYL 100 MCG/2 ML INJ IVP PRN (12:17)
--- NOTE | 2017-06-13 12:17 | POSTANESTH ---
Post Anesthetic Evaluation Cardiovascular Status: Normal, Stable Respiratory Status: Normal, Stable Level of Consciousness/Mental Status: Can Participate in Eval Pain Control: Adequate, Prn Tx Ordered Nausea/Vomiting Control: Adequate, Prn Tx Ordered Complications Possibly Related to Anesthesia: None Noted
--- NOTE | 2017-06-13 12:52 | POSTOPPROG ---
Post Op Note Date of Operation: 06/13/17 Surgeon: Manjeet Palumbo Production Miner: Dr. Hernandez Anesthesiologist: Dr. Nails Anesthesia: GET(General Endotracheal) Pre-op Diagnosis: Symp cholelith Post-op Diagnosis: same Procedure: SILS cholecystectomy Findings: inflammation Inf/Abcess present in the surg proc area at time of surgery?: No EBL: Minimal
[2017-06-13] MEDS ORDERED: fentaNYL 100 MCG/2 ML INJ ONE (13:02)
[2017-06-13] MEDS ORDERED: oxyCODONE IR 5 MG TAB ONE (13:02)
[2017-06-13 13:34] VITALS: BP 133/95
--- NOTE | 2017-06-13 14:20 | GOP ---
[f rep st] OPERATIVE REPORT DATE OF OPERATION: 06/13/2017 SURGEON: Cruz Palumbo MD METAL TECHNICIAN: Dr. Hernandez, whose presence was requested by me, medically necessary for the safe and t imely completion of this case. ANESTHESIA: General endotracheal anesthesia. ANESTHESIOLOGIST: Chapin Parker. PREOPERATIVE DIAGNOSIS: Symptomatic cholelithiasis. POSTOPERATIVE DIAGNOSIS: Symptomatic cholelithiasis. PROCEDURE PERFORMED: Single site robotic cholecystectomy. FINDINGS: The patient had inflamed gallbladder with small stones. ESTIMATED BLOOD LOSS: 20 cc. INDICATIONS: 36-year-old female with a history of nausea. All imaging demonstrated gallstones. Ris ks and benefits of the procedure were discussed with the patient and her family, their questions were answered, and they wished to proceed. DESCRIPTION OF PROCEDURE: The patient was in the supine position. After the induction of adequate g eneral endotracheal anesthesia, the patient was prepped and draped in the standard surgical fashion. Marcaine 0.5% was injected throughout the umbilical area. A transverse incision was made through th e umbilicus and carried down to subcutaneous tissue with Bovie cautery and blunt dissection. The fas carli was exposed and divided vertically in the midline. The fascia was elevated, and the abdomen was carefully entered. A 2.5-cm incision was made and the single site trocar was placed carefully. Next , the camera trocar was placed into the single site trocar and the camera itself followed. The area was inspected and no damage was seen from trocar placement. At this point, the robot was moved into position. The patient was then tilted into reverse Trendelenburg and the camera port was docked. Ne xt, the fitter's assistant port was placed and the curved robotic arm ports were placed. These were all place d under direct vision without incident. The robot was fully docked and the dissection proceeded robo tically. Adhesions were taken down using blunt dissection and Bovie cautery. The cystic structures were then dissected similarly. The cystic duct and cystic artery were clearly identified. In addition, the torres bhepatic space was dissected. Once this critical view was obtained, the cystic duct and artery were clipped and divided. The gallbladder was then elevated off the liver bed using Bovie cautery and talha nt dissection. The gallbladder was grasped in the fitter's assistant port. The robot itself was undocked and the patient ret urned to the neutral position. The single site port and fitter's assistant trocar were removed together. The gallbladder was then extracted. The abdomen was thoroughly irrigated and aspirated. Good hemostasi s was noted. The fascia at the trocar site was then closed using 0 Vicryl in a running fashion. Wou nds were thoroughly irrigated. Skin was closed with 4-0 Monocryl in a subcuticular stitch. The woun d was then sterilely dressed. The patient was extubated and taken to PACU in stable condition. COMPLICATIONS: None. DRAINS: None. /[id number]/MODL
== END 2017-06-13 14:20 | disposition home or self-care (01) ==
LOC: FSGY 09:00
PROVIDERS: ATTEND Surgery
DX: K80.20 Calculus of gallbladder without cholecystitis without obstruction (principal); E28.2 Polycystic ovarian syndrome
CPT/HCPCS: J0694; J1100; J1885; J2250; J2405; J2704; J3010

== ENCOUNTER → 2017-08-16 | Outpatient (CLI) | payer BC ==
[~2017-08-16] MED LIST: IOPAMIDOL (ISOVUE-300) 100 ML BTL ONE
== END ==
LOC: FIMAGING 09:39
PROVIDERS: ATTEND Internal Medicine Endocrinology, Diabetes & Metabolism
DX: R22.1 Localized swelling, mass and lump, neck (principal); R07.0 Pain in throat; Z90.49 Acquired absence of other specified parts of digestive tract; Z90.89 Acquired absence of other organs
CPT/HCPCS: Q9967